=== PATIENT | female | born 1985 | race Caucasian/White ===

== ENCOUNTER 2022-01-18 09:55 | Emergency (ER) | payer MEDICARE, MEDICAID ==
[~2022-01-18] VITALS: Ht 149.8 cm; Wt 49.8 kg
[2022-01-18] MEDS ORDERED: diphenhydrAMINE 25 MG TAB (BENADRYL) PO ONE (10:30)
--- NOTE | 2022-01-18 10:44 | ED Integumentary General ---
General Chief Complaint: Skin/Wound Problems Stated Complaint: ITCHY SKIN,WARM Nursing Triage Note: PT TO [facility] 8 WITH CC OF SKIN ITCHING SINCE YESTERDAY. PT REPORTS DOGS AND CATS THAT LIVE IN HER HOUSE HAVE FLEAS AND WERE TREATED YESTERDAY. PT STATES HER "SKIN IS ON FIRE." PT HAS VISIABLE SCRATCHES ON BACK AND BACK OF NECK. PT BUG BOMBED HER HOUSE WITHIN THE PAST FEW DAYS. CHECKED HER HAIR FOR LICE AND THERE WERE NO NITS OR LICE VISIABLE. Source: patient Exam Limitations: no limitations History of Present Illness Date Seen by Provider: Jan 18, 2022 Time Seen by Provider: 10:15 Initial Comments Patient is a 36-year-old female who presents to the emergency department today with a chief complaint of itching all over, feeling like she might have some sort of a bug crawling on her skin. She has multiple animals at home including 4 cats, 3 dogs and 4 puppies. She states her skin is "on fire". She saw little insects on her dogs and treated those as well as "bug bomb to" her house. She has not taken anything for the itching. Patient does seem to be responding to an intoxicant, possibly methamphetamine although she denies use. Patient is scratching at the back of her neck, along her arms. She has visible superficial scratches as well she states due to the puppies. She is not on any daily medications. She is not allergic to any medications. She has not applied any creams or ointments. All other review of systems reviewed and negative except as stated. Timing/Duration: yesterday Severity: moderate Location: torso, generalized (neck) Associated Symptoms: denies symptoms Allergies and Home Medications Allergies Coded Allergies: banana (Verified Allergy, Unknown, 01/18/22) Patient Home Medication List Home Medication List Reviewed: Yes Permethrin (Elimite) 5 % Cream..g., 30 GM TP ONCE Prescribed by: MARK MORLEY on 01/18/22 1050 Review of Systems Review of Systems Constitutional: see HPI EENTM: no symptoms reported Respiratory: no symptoms reported Cardiovascular: no symptoms reported Gastrointestinal: no symptoms reported Genitourinary: no symptoms reported Musculoskeletal: no symptoms reported Skin: pruritus Past Qgfyiuu-Xxapoy-Rmhepi Hx Patient Social History Use of E-Cig and/or Vaping dev: Yes E-Cig or Vaping type used: Nicotine Use of E-Cig and/or Vaping Aj: Current Everyday User Substance use?: No Alcohol Use?: No Pt feels they are or have been: No Immunizations Up To Date First/Initial COVID19 Vaccinat: UNK Past Medical History Surgery/Hospitalization HX: ANXIETY Physical Exam Vital Signs Vital Signs - First Documented 01/18/22 10:04 Temp 35.8 Pulse 105 Resp 16 B/P (MAP) 128/87 (101) Pulse Ox 99 O2 Delivery Room Air Capillary Refill : Less Than 3 Seconds General Appearance: mild distress, thin HEENT: PERRL/EOMI, other (dentures in place) Neck: normal inspection Cardiovascular: regular rate, rhythm Respiratory: lungs clear, normal breath sounds, no respiratory distress, no accessory muscle use Gastrointestinal: non tender, soft Extremities: normal range of motion, normal inspection, no pedal edema Neurologic/Psychiatric: alert, other (appears intoxicated, potentially on methamphetamine) Skin: normal color, warm/dry, other (scattered superficial abrasions to bilateral upper extremities; excoriation at the nape of the neck and along the waist line. No "furrows" noted. nothing at the wrists or in the folds of the fingers) Lymphatic: no adenopathy Progress/Results/Core Measures Results/Orders Lab Results Laboratory Tests Test 01/18/22 10:29 01/18/22 10:53 Range/Units Urine Color YELLOW Urine Clarity CLEAR Urine pH 6.0 5-9 Urine Specific [place] 1.025 H 1.016-1.022 Urine Protein TRACE H NEGATIVE Urine Glucose (UA) NEGATIVE NEGATIVE Urine Ketones 1+ H NEGATIVE Urine Nitrite NEGATIVE NEGATIVE Urine Bilirubin NEGATIVE NEGATIVE Urine Urobilinogen 1.0 < = 1.0 MG/DL Urine Leukocyte Esterase NEGATIVE NEGATIVE Urine RBC (Auto) NEGATIVE NEGATIVE Urine RBC 0-2 /HPF Urine WBC NONE /HPF Urine Squamous Epithelial Cells 2-5 /HPF Urine Crystals PRESENT H /LPF Urine Amorphous Sediment FEW BOLIVAR URATES H /LPF Urine Bacteria NEGATIVE /HPF Urine Casts NONE /LPF Urine Mucus NEGATIVE /LPF Urine Culture Indicated NO Urine Opiates Screen NEGATIVE NEGATIVE Urine Oxycodone Screen NEGATIVE NEGATIVE Urine Methadone Screen NEGATIVE NEGATIVE Urine Propoxyphene Screen NEGATIVE NEGATIVE Urine Barbiturates Screen NEGATIVE NEGATIVE Ur Tricyclic Antidepressants Screen NEGATIVE NEGATIVE Urine Phencyclidine Screen NEGATIVE NEGATIVE Urine Amphetamines Screen POSITIVE H NEGATIVE Urine Methamphetamines Screen POSITIVE H NEGATIVE Urine Benzodiazepines Screen NEGATIVE NEGATIVE Urine Cocaine Screen NEGATIVE NEGATIVE Urine Cannabinoids Screen POSITIVE H NEGATIVE My Orders Orders - MARK MORLEY MD Ua Culture If Indicated (01/18/22 10:19) Urine Bedside (01/18/22 10:19) Diphenhydramine Tablet (Benadryl Tablet) (01/18/22 10:30) Drug Screen Stat (Urine) (01/18/22 10:51) Medications Given in ED Current Medications Medications Dose Ordered Sig/Toya Route Start Time Stop Time Status Last Admin Dose Admin Diphenhydramine HCl 50 mg ONCE ONCE PO 01/18/22 10:30 01/18/22 10:31 DC 01/18/22 10:35 50 MG Vital Signs/I&O 01/18/22 10:04 Temp 35.8 Pulse 105 Resp 16 B/P (MAP) 128/87 (101) Pulse Ox 99 O2 Delivery Room Air Blood Pressure Mean: 101 Progress Progress Note : Time: 10:42 Progress Note patient does appear to be intoxicated on methamphetamine, although does have excoriations to skin at waist and nape of neck - possibly could be scabies (multiple animals n the home). no loce seen on physical exam. Could be just formication due to meth abuse. Will go ahead and treat for scabies. bedside test is negative. It will be safe to treat her. Will send rx to [facility]. REturn precautions provided. advised benadryl for the itching. Departure Impression Primary Impression: Dermatitis Disposition: 01 HOME, SELF-CARE Condition: Stable Departure-Patient Inst. Decision time for Depature: 10:44 [facility]: [facility] [place],LOCAL PHYSICIAN (PCP) Primary Care Physician Patient Instructions: Scabies (DC) Add. Discharge Instructions: Bathe at least once a day to help keep the skin clean and keep bugs off/ insects from your pets. I have sent a prescription for scabies to [facility]. Apply from neck to toes this evening and shower off in the morning. Repeat in 1 week. Over the counter benadryl 1-2 pills for itching ever 6 hours. Do not apply benadryl cream and take benadryl by mouth at the same time. Was all bedding in hot water and get a spray for cough cushions to kill scabies ([facility] Return to the ER for re check if you have any worsening or new, concerning symptoms. Follow up in 2 weeks at [facility]. Scripts Permethrin (Elimite) 5 % Cream..g. 30 GM TP ONCE, #60 GM apply neck to toes on day one; leave on 5-14h, then shower off. repeat in 2 weeks. Prov: MARK MORLEY MD 01/18/22 MARK MORLEY MD Jan 18, 2022 10:44
[2022-01-18] MEDS ORDERED: PERM60CR17 TP (10:50)
[2022-01-18 10:51] LABS: BILIRUBIN,URINE NEGATIVE (NEGATIVE); CLARITY,URINE CLEAR; COLOR,URINE YELLOW; GLUCOSE, URINE (UA) NEGATIVE (NEGATIVE); KETONES,URINE 1+ (NEGATIVE); LEUKOCYTE ESTERASE ,URINE NEGATIVE (NEGATIVE); NITRITE,URINE NEGATIVE (NEGATIVE); PROTEIN,URINE TRACE (NEGATIVE)
[2022-01-18 10:52] LABS: AMORPHOUS SEDIMENT,UR FEW AMOR URATES /LPF; BACTERIA,URINE NEGATIVE /HPF; RBC,URINE 0-2 /HPF
[2022-01-18 11:20] LABS: AMPHETAMINE SCREEN, URINE POSITIVE (NEGATIVE); BARBITURATE SCREEN URINE NEGATIVE (NEGATIVE); BENZODIAZEPINES SCREEN URINE NEGATIVE (NEGATIVE); CANNABINOID SCREEN, URINE POSITIVE (NEGATIVE); COCAINE SCREEN URINE NEGATIVE (NEGATIVE); METHADONE STAT NEGATIVE (NEGATIVE); OPIATE SCREEN URINE NEGATIVE (NEGATIVE); OXYCODONE STAT NEGATIVE (NEGATIVE); PROPOXYPHENE STAT NEGATIVE (NEGATIVE); TRICYCLIC ANTIDEPRESSANTS SCRE NEGATIVE (NEGATIVE)
[2022-01-18 11:50] VITALS: BP 128/87
== END 2022-01-18 11:50 | disposition home or self-care (01) ==
LOC: ER 09:59
DX: L30.9 Dermatitis, unspecified (principal); F17.200 Nicotine dependence, unspecified, uncomplicated; Z32.02 Encounter for pregnancy test, result negative
CPT/HCPCS: 80306; 81000; 84703; 99283

== ENCOUNTER 2022-07-10 16:45 | Emergency (ER) | payer MEDICARE, MEDICAID ==
[~2022-07-10] VITALS: Ht 147.3 cm; Wt 47.6 kg
[~2022-07-10 16:45] MED LIST: PERM60CR17 TP
[2022-07-10] MEDS ORDERED: ONDA8TAB13 SL (17:09)
--- NOTE | 2022-07-10 17:10 | ED Head Injury ---
General Chief Complaint: Head/Cervical Problems Stated Complaint: FORGETFULNESS, VOMITING, HEADACHE Nursing Triage Note: PT AMB TO RM 5 WITH COMPLAINT OF HEADACHE. STATES YESTERDAY SHE WAS GETTING HER DOG IN THE HOUSE AND THE DOG PULLED HER CAUSING HER TO HIT HER HEAD ON THE DOOR. STATES PAIN IS INCREASING. Source: patient Exam Limitations: no limitations History of Present Illness Date Seen by Provider: Jul 10, 2022 Time Seen by Provider: 17:02 Initial Comments 37-year-old female presents after a head injury. Last night she was trying to take her dog off leash, bent down and the dog pulled the leash tight causing her to lurch forward. She hit her head on a door jam and nearly lost consciousness though she did not fully lose consciousness. She states she "saw stars." He is not on any blood thinning medications. She states since that event she has been forgetful, had a headache and had 2 or 3 bouts of nausea with vomiting. She denies any previous injury. She believes she hit her left anterior head on the door jam application of a small abrasion. No blurred or double vision. No upper extremity weakness numbness or tingling. No neck or back pain. She denies any other injury. All other systems reviewed and negative except documented per HPI. Voice recognition software was used to help create this chart Allergies and Home Medications Allergies Coded Allergies: banana (Verified Allergy, Unknown, 01/18/22) Patient Home Medication List Home Medication List Reviewed: Yes Ondansetron (Ondansetron Odt) 8 Mg Tab.rapdis, 8 MG SL Q6H PRN for NAUSEA/VOMITING Prescribed by: KATHY VÁSQUEZ MD on 07/10/22 1709 Permethrin (Elimite) 5 % Cream..g., 30 GM TP ONCE Prescribed by: MARK MORLEY on 01/18/22 1050 Review of Systems Review of Systems Constitutional: no symptoms reported Past Xsctqkh-Aujbgx-Guwtga Hx Patient Social History Tobacco Use?: No Use of E-Cig and/or Vaping dev: Yes Substance use?: No Alcohol Use?: Yes Alcohol Frequency: Once in a while Pt feels they are or have been: No Immunizations Up To Date First/Initial COVID19 Vaccinat: UNK Second COVID19 Vaccination Wilfrid: UNK Third COVID19 Vaccination Date: UNK Past Medical History Surgery/Hospitalization HX: ANXIETY, depression Family Medical History Reviewed Nursing Family Hx No Pertinent Family Hx Physical Exam Vital Signs Vital Signs - First Documented 07/10/22 16:52 Temp 37.3 Pulse 122 Resp 16 B/P (MAP) 109/63 (78) Pulse Ox 97 O2 Delivery Room Air Capillary Refill : Less Than 3 Seconds Height, Weight, BMI Height: '" Weight: lbs. oz. kg; 21.00 BMI Method: General Appearance: WD/WN, no apparent distress HEENT: PERRL/EOMI, normal ENT inspection, TMs normal, pharynx normal Neck: non-tender, full range of motion, supple, normal inspection Cardiovascular: regular rate, rhythm, no murmur Respiratory: chest non-tender, lungs clear, normal breath sounds, no respiratory distress, no accessory muscle use Gastrointestinal: normal bowel sounds, non tender, soft, no organomegaly Extremities: normal range of motion, non-tender, normal inspection, no pedal edema, no calf tenderness, normal capillary refill Psychiatric: alert, oriented x 3 Crainal Nerves: normal hearing, normal speech, PERRL Coordination/Gait: normal finger to nose, normal gait Motor/Sensory: no motor deficit, no sensory deficit Skin: warm/dry, other (Small abrasion in her eyebrow and left anterior forehead medially. Very superficial. Approximately 1 cm.) The patient appears quite anxious Progress/Results/Core Measures Results/Orders My Orders Vital Signs/I&O Blood Pressure Mean: 78 Departure Communication (Admissions) Patient currently alert and oriented with a GCS of 15. She does complain of continued headache and persistent vomiting. With that we will go ahead with CT scan to rule out intracranial hemorrhage. She may have a slight concussion. There is no evidence for other injury. No indication for any other imaging or lab testing at this time. She does appear quite anxious. 1723: Head CT shows no evidence of bleeding. Discharged with concussion prot ocol and return precautions. Impression Primary Impression: Closed head injury Qualified Codes: S09.90XA - Unspecified injury of head, initial encounter Additional Impression: Vomiting Qualified Codes: R11.2 - Nausea with vomiting, unspecified Disposition: HOME, SELF-CARE Condition: Stable Departure-Patient Inst. Referrals: NO,LOCAL PHYSICIAN (PCP/Family) Primary Care Physician Patient Instructions: Concussion, Adult ED, Minor Head Injury, Adult ED Add. Discharge Instructions: You were seen in the emergency department today after head injury. Your CT scan shows no evidence of bleeding. You likely have a mild concussion. Perform brain rest as recommended and do not perform strenuous activities until you are completely symptom-free and cleared by your primary doctor. No contact sports until cleared either. Use ibuprofen and Tylenol as needed for pain. I have provided nausea medicine for you at your pharmacy and you can pick them up and use them as needed. There is no way to predict how long symptoms will last aft er concussion but usually they resolve within a week or so. If your symptoms persist will need to follow-up with your primary doctor. All discharge instructions reviewed with patient and/or family. Voiced understanding. Scripts Ondansetron (Ondansetron Odt) 8 Mg Tab.rapdis 8 MG SL Q6H PRN for NAUSEA/VOMITING for 3 Days, #12 TAB Prov: KATHY VÁSQUEZ DO 07/10/22 KATHY VÁSQUEZ DO Jul 10, 2022 17:09
[2022-07-10] MEDS ORDERED: ACETAMINOPHEN 500 MG TAB (TYLENOL) PO ONE (17:30)
[2022-07-10 17:31] VITALS: BP 120/78
--- NOTE | 2022-07-10 17:32 | Diagnostic Imaging Report ---
PROCEDURE: CT head without contrast. TECHNIQUE: Multiple contiguous axial images were obtained through the brain without the use of intravenous contrast. Auto Exposure Controls were utilized during the CT exam to meet ALARA standards for radiation dose reduction. INDICATION: Head pain following injury. COMPARISON: None. FINDINGS: There is no intracranial hemorrhage, hydrocephalus, cerebral edema, mass, mass effect or evidence for an elevation of the intracerebral pressures. There is no abnormal extra-axial fluid collection. The midline structures nondisplaced. The orbits, sinuses and calvarium appear unremarkable. IMPRESSION: Normal CT head. Dictated by: Dictated on workstation # [id number]
== END 2022-07-10 17:31 | disposition home or self-care (01) ==
LOC: EDUNIT# 16:45 → ER 16:49
DX: S09.90XA Unspecified injury of head, initial encounter (principal); S00.81XA Abrasion of other part of head, initial encounter; R11.2 Nausea with vomiting, unspecified; F17.290 Nicotine dependence, other tobacco product, uncomplicated; W22.09XA Striking against other stationary object, initial encounter; Y93.K1 Activity, walking an animal; Y92.89 Other specified places as the place of occurrence of the external cause
CPT/HCPCS: 70450